=== PATIENT | male | born 1935 | race Caucasian/White ===

== ENCOUNTER 2021-12-12 03:47 | Inpatient (IN) | payer OTHER ==
[~2021-12-12] VITALS: Ht 170.2 cm; Wt 65.4 kg
[2021-12-12] MEDS ORDERED: ACETAMINOPHEN 325MG TABLET PO STA (04:24)
[2021-12-12] MEDS ORDERED: PIPERACILLIN/TAZ 3.375G PREMIX 50 ML IV ONE (04:30)
[2021-12-12] MEDS ORDERED: SODIUM CHLORIDE 0.9% 1000ML BAG (SEPSIS BOLUS) IV ONE (04:30)
[2021-12-12] MEDS ORDERED: VANCOMYCIN 1G PREMIX 200 ML IV ONE (04:30)
[2021-12-12 05:08] LABS: HEMATOCRIT. 38.2 % (42.0-52.0); HEMOGLOBIN. 13.1 g/dL (14.0-18.0); MEAN CORPUSCULAR HEMOGLOBIN 31.1 pg (28.0-32.0); MEAN CORPUSCULAR VOLUME 90.8 fL (80.0-94.0); MEAN PLATELET VOLUME 7.3 fl (7.4-10.4); PLATELET 209 x1000/uL (130-400); RED BLOOD CELL COUNT 4.21 mill/uL (4.7-6.1)
[2021-12-12 05:15] LABS: CHLORIDE 95 mEq/L (98-107)
[2021-12-12 05:34] LABS: CLARITY URINE CLEAR (CLEAR); COLOR URINE YELLOW (YELLOW); KETONES URINE TRACE (NEGATIVE); LEUKOCYTE ESTERASE URINE 1+ (NEGATIVE); NITRITE URINE POSITIVE (NEGATIVE); OCCULT BLOOD URINE 3+ (NEGATIVE); PH URINE 6.5 (4.5-8.0); PROTEIN URINE 2+ (NEGATIVE); SPECIFIC GRAVITY URINE 1.013 (1.005-1.030)
[2021-12-12] MEDS ORDERED: HYDROCODONE/ACETAMINOPHEN 5/325MG TABLET PO PRN (11:15)
[2021-12-12] MEDS ORDERED: CLONIDINE 0.1MG TABLET PO PRN (11:15)
[2021-12-12] MEDS ORDERED: ACETAMINOPHEN 325MG TABLET PO PRN (11:15)
[2021-12-12] MEDS ORDERED: MORPHINE SULFATE 2 MG/ML CPJ (NOT FOR IM USE) IV PRN (11:15)
[2021-12-12] MEDS ORDERED: IPRATROPIUM/ALBUTEROL 0.5-3(2.5)MG/3ML NEB HHN PRN (11:15)
[2021-12-12] MEDS ORDERED: DOCUSATE SODIUM 100MG CAPSULE PO PRN (11:15)
[2021-12-12] MEDS ORDERED: HYDRALAZINE 20MG/ML VIAL IV PRN (11:15)
[2021-12-12] MEDS ORDERED: MAGNESIUM/ALUMINUM HYDROXIDE/SIMETHICONE 30ML UDC PO PRN (11:15)
[2021-12-12] MEDS ORDERED: GUAIFENESIN 200MG/10ML SUGAR FREE UDC PO PRN (11:15)
[2021-12-12] MEDS ORDERED: ONDANSETRON HCL 4MG/2ML INJ IV PRN (11:15)
[2021-12-12] MEDS ORDERED: DIPHENHYDRAMINE 50MG/ML VIAL IV PRN (11:15)
[2021-12-12] MEDS ORDERED: POTASSIUM CHLORIDE 20MEQ TABLET SR PO NR (11:30)
[2021-12-12] MEDS: ENOXAPARIN 40MG/0.4ML SYR SUBCUT SCH (12:04)
[2021-12-12] MEDS: SODIUM CHLORIDE 0.45% 1,000 ML IV SCH (12:04)
[2021-12-12] MEDS ORDERED: PIPERACILLIN/TAZOBACTAM 3.375 G in DEXTROSE 5% WATER 50 ML IV SCH (14:00)
[2021-12-12] MEDS ORDERED: NALOXONE HCL 0.4MG/ML VIAL IV PRN (16:45)
[2021-12-12] MEDS ORDERED: PIPERACILLIN/TAZ 3.375G PREMIX 50 ML IV NR (16:45)
[2021-12-12] MEDS: SODIUM CHLORIDE 0.9% INJ 3ML FLUSH IVF SCH ×2 (17:12→22:00)
[2021-12-12] MEDS: PIPERACILLIN/TAZOBACTAM 3.375 G in DEXTROSE 5% WATER 50 ML IV SCH (22:00)
[2021-12-12 22:24] VITALS: BP 128/73
[2021-12-13] VITALS: BP 125/73
[2021-12-13 04:00] VITALS: BP_SYST 122; BP_SYST 129; BP_DIAS 69; BP_DIAS 75
[2021-12-13] MEDS: SODIUM CHLORIDE 0.9% INJ 3ML FLUSH IVF SCH ×3 (05:21→22:01)
[2021-12-13] MEDS: PIPERACILLIN/TAZOBACTAM 3.375 G in DEXTROSE 5% WATER 50 ML IV SCH ×3 (05:25→22:01)
[2021-12-13 06:31] LABS: HEMATOCRIT. 35.5 % (42.0-52.0); MEAN CORPUSCULAR HEMOGLOBIN 30.6 pg (28.0-32.0); MEAN CORPUSCULAR VOLUME 90.7 fL (80.0-94.0); MEAN PLATELET VOLUME 7.7 fl (7.4-10.4); PLATELET 203 x1000/uL (130-400); RED BLOOD CELL COUNT 3.91 mill/uL (4.7-6.1); RED CELL DISTRIBUTION WIDTH 13.9 % (11.6-14.6)
[2021-12-13 07:23] LABS: CHLORIDE 100 mEq/L (98-107)
[2021-12-13 08:00] VITALS: BP 116/65
[2021-12-13 12:00] VITALS: BP 116/52
[2021-12-13] MEDS: SODIUM CHLORIDE 0.45% 1,000 ML IV SCH (13:35)
[2021-12-13] MEDS: ENOXAPARIN 40MG/0.4ML SYR SUBCUT SCH (13:36)
[2021-12-13 16:00] VITALS: BP 119/56
[2021-12-13 17:30] LABS: PLATELET ESTIMATE NORMAL
[2021-12-13] MEDS ORDERED: POTASSIUM CHLORIDE 20MEQ TABLET SR PO NR (18:30)
[2021-12-13 20:00] VITALS: BP 130/80
[2021-12-14] VITALS: BP 138/77
[2021-12-14 04:00] VITALS: BP 128/79
[2021-12-14] MEDS: SODIUM CHLORIDE 0.9% INJ 3ML FLUSH IVF SCH ×3 (06:10→22:09)
[2021-12-14] MEDS: PIPERACILLIN/TAZOBACTAM 3.375 G in DEXTROSE 5% WATER 50 ML IV SCH ×3 (06:10→22:09)
[2021-12-14 06:25] LABS: HEMATOCRIT. 36.2 % (42.0-52.0); HEMOGLOBIN. 12.4 g/dL (14.0-18.0); MEAN CORPUSCULAR HEMOGLOBIN 30.7 pg (28.0-32.0); MEAN CORPUSCULAR VOLUME 89.7 fL (80.0-94.0); MEAN PLATELET VOLUME 7.6 fl (7.4-10.4); PLATELET 202 x1000/uL (130-400); RED BLOOD CELL COUNT 4.04 mill/uL (4.7-6.1); RED CELL DISTRIBUTION WIDTH 14.1 % (11.6-14.6)
[2021-12-14 07:10] LABS: CHLORIDE 98 mEq/L (98-107)
[2021-12-14 08:00] VITALS: BP 118/76
[2021-12-14] MEDS: SODIUM CHLORIDE 0.45% 1,000 ML IV SCH (11:15)
[2021-12-14 12:00] VITALS: BP 143/84
[2021-12-14] MEDS: ENOXAPARIN 40MG/0.4ML SYR SUBCUT SCH (13:22)
[2021-12-14 16:00] VITALS: BP 138/82
[2021-12-14 20:00] VITALS: BP 134/68
[2021-12-14 22:23] LABS: PLATELET ESTIMATE NORMAL
[2021-12-15] VITALS: BP 137/77
[2021-12-15 04:00] VITALS: BP 137/72
[2021-12-15] MEDS: PIPERACILLIN/TAZOBACTAM 3.375 G in DEXTROSE 5% WATER 50 ML IV SCH (06:26)
[2021-12-15] MEDS: SODIUM CHLORIDE 0.9% INJ 3ML FLUSH IVF SCH (06:26)
[2021-12-15 06:44] LABS: HEMATOCRIT. 36.1 % (42.0-52.0); HEMOGLOBIN. 12.3 g/dL (14.0-18.0); MEAN CORPUSCULAR HEMOGLOBIN 30.8 pg (28.0-32.0); MEAN PLATELET VOLUME 7.6 fl (7.4-10.4); PLATELET 202 x1000/uL (130-400); RED BLOOD CELL COUNT 4.01 mill/uL (4.7-6.1); RED CELL DISTRIBUTION WIDTH 14.1 % (11.6-14.6)
[2021-12-15 06:51] LABS: CHLORIDE 102 mEq/L (98-107)
[2021-12-15 08:00] VITALS: BP 125/67
[2021-12-15] MEDS ORDERED: POTASSIUM CHLORIDE 20MEQ TABLET SR PO NR (10:30)
[2021-12-15] MEDS: ENOXAPARIN 40MG/0.4ML SYR SUBCUT SCH (11:31)
[2021-12-15] MEDS: SODIUM CHLORIDE 0.45% 1,000 ML IV SCH (11:32)
[2021-12-15 11:48] VITALS: BP 128/69
[2021-12-15 12:00] VITALS: BP 128/69
[2021-12-15 18:45] LABS: PLATELET ESTIMATE NORMAL
== END 2021-12-15 14:45 | disposition home health service (06) | DRG 872 ==
LOC: ER 03:57 → 8WST 06:48 → SUPCPDRO 11:12 → ENRESERV 19:36
PROVIDERS: ADMIT Internal Medicine; ATTEND Internal Medicine
DX: A41.51 Sepsis due to Escherichia coli [E. coli] (principal); N13.6 Pyonephrosis; K40.90 Unilateral inguinal hernia, without obstruction or gangrene, not specified as recurrent; N40.1 Benign prostatic hyperplasia with lower urinary tract symptoms; I10 Essential (primary) hypertension; E11.9 Type 2 diabetes mellitus without complications; K56.41 Fecal impaction; R33.8 Other retention of urine; R77.8 Other specified abnormalities of plasma proteins; Z90.49 Acquired absence of other specified parts of digestive tract
CPT/HCPCS: 36415; 71045; 74176; 80048; 80053; 81003; 82962; 83605; 84145; 84484; 85025; 87077; 87186; 93005; 93970; 99285; J1650; J2543; J3370; J7030; J7060